=== PATIENT | female | born 2000 | race Caucasian/White ===

== ENCOUNTER 2022-03-04 03:49 | Emergency (ER) | payer BC ==
[2022-03-04] MEDS ORDERED: Ondansetron PF 4 MG/2 ML Vial ONE ×2 (04:23→06:08)
[2022-03-04] MEDS ORDERED: Ketorolac Tromethamine 30 MG/ML VIAL ONE (04:23)
[2022-03-04 04:41] LABS: #Eosinphils 0.2 thou/uL (0.0-0.7); #Lymphocytes 2.8 thou/uL (1.20-3.40); #Monocytes 0.7 thou/uL (0.11-0.59); #Neutrophils 7.5 thou/uL (1.40-6.50); %Basophils 0.3 % (0.0-1.0); %Eosinophils 1.9 % (0.0-10.0); %Lymphocytes 24.7 % (28.0-48.0); %Monocytes 6.4 % (0.0-4.0); %Neutrophils 66.6 % (31.0-61.0); Hemoglobin 12.2 g/dL (12.0-16.0); Mean Corpuscular HGB CONC 32.9 g/dL (32.0-36.0); Mean Corpuscular Hemoglobin 29.1 pg (25.0-35.0); Mean Corpuscular Volume 88.5 fL (78.0-98.0); Mean Platelet Volume 7.3 fL (7.4-10.4); Platelet Count 254 thou/uL (130-400); RBC Distribution Width 11.1 % (11.5-14.5); White Blood Cell (WBC) Count 11.3 thou/uL (4.8-10.8)
[2022-03-04 04:47] LABS: BHCG - Serum Negative (NEGATIVE); Pregs Control Background? CLEAR/WHITE (CLR/WHITE); Pregs Control Bar Appear? YES (CONTROL BAR)
[2022-03-04 04:57] LABS: ALT (SGPT) 24 U/L (8-55); AST (SGOT) 20 U/L (5-34); Alkaline Phosphatase 44 U/L (40-100); Anion Gap 9 mmol/L (10-20); BUN (Urea Nitrogen) 15 mg/dL (7.0-18.7); Bilirubin, Total 0.5 mg/dL (0.2-1.2); Calc. Creatinine Clearance 0 mL/min (70-130); Calcium 9.2 mg/dL (7.8-10.44); Carbon Dioxide 27 mmol/L (22-29); Chloride 105 mmol/L (98-107); Globulin 2.9 g/dL (2.4-3.5); Glucose 91 mg/dL (70-105); Lipase 21 U/L (8-78); Potassium 3.7 mmol/L (3.5-5.1); Protein, Total 6.9 g/dL (6.0-8.3); Sodium 137 mmol/L (136-145)
[2022-03-04 05:52] LABS: Bilirubin Negative (Negative); Blood, Urine Negative (Negative); Clarity Clear (Clear); Glucose, Urine (Dipstick) Normal (Negative); Ketone, Urine Negative (Negative); Leukocyte Negative Leu/uL (Negative); Nitrite Negative (Negative); Protein, Urine (Dipstick) Negative (Neg-Trace); Specific Gravity, Urine 1.022 (1.002-1.036); Urobilinogen Normal mg/dL (Less than 2)
== END 2022-03-04 07:01 | disposition home or self-care (01) ==
LOC: ERS 03:49
DX: R11.2 Nausea with vomiting, unspecified (principal); R10.31 Right lower quadrant pain; R10.814 Left lower quadrant abdominal tenderness; R10.813 Right lower quadrant abdominal tenderness
CPT/HCPCS: 71045; 80053; 81003; 83690; 84703; 85025; 93005; 96374; 96375; 96376; J1885; J2405

== ENCOUNTER 2022-03-31 07:19 | Outpatient (CLI) | payer BC | END 2022-03-31 07:20 | disposition home or self-care (01) | LOC: BICULT 07:19 | PROVIDERS: ATTEND Physician Assistant Medical | DX: R10.11 Right upper quadrant pain (principal); R10.33 Periumbilical pain; K62.5 Hemorrhage of anus and rectum; R19.7 Diarrhea, unspecified; R11.2 Nausea with vomiting, unspecified | CPT/HCPCS: 76700 ==

== ENCOUNTER 2022-05-02 21:00 | Emergency (ER) | payer BC ==
[2022-05-02 21:23] LABS: #Eosinphils 0.1 thou/uL (0.0-0.7); #Lymphocytes 2.4 thou/uL (1.20-3.40); #Monocytes 0.7 thou/uL (0.11-0.59); #Neutrophils 5.4 thou/uL (1.40-6.50); %Basophils 0.2 % (0.0-1.0); %Eosinophils 1.7 % (0.0-10.0); %Lymphocytes 27.3 % (28.0-48.0); %Monocytes 8.3 % (0.0-4.0); %Neutrophils 62.5 % (31.0-61.0); Hemoglobin 12.1 g/dL (12.0-16.0); Mean Corpuscular HGB CONC 33.4 g/dL (32.0-36.0); Mean Corpuscular Hemoglobin 29.9 pg (25.0-35.0); Mean Corpuscular Volume 89.5 fL (78.0-98.0); Mean Platelet Volume 7.6 fL (7.4-10.4); Platelet Count 236 thou/uL (130-400); RBC Distribution Width 11.3 % (11.5-14.5); Red Blood Cell (RBC) Count 4.05 mill/uL (4.00-5.20); White Blood Cell (WBC) Count 8.7 thou/uL (4.8-10.8)
[2022-05-02 21:41] LABS: Bilirubin Negative (Negative); Blood, Urine Negative (Negative); Clarity Turbid (Clear); Glucose, Urine (Dipstick) Normal (Negative); Ketone, Urine 20 mg/dL (Negative); Leukocyte Negative Leu/uL (Negative); Nitrite Negative (Negative); Protein, Urine (Dipstick) 20 mg/dL (Neg-Trace); Specific Gravity, Urine 1.027 (1.002-1.036); Urobilinogen Normal mg/dL (Less than 2)
[2022-05-02 21:44] LABS: ALT (SGPT) 21 U/L (8-55); AST (SGOT) 20 U/L (5-34); Albumin 4.1 g/dL (3.5-5.0); Alkaline Phosphatase 42 U/L (40-100); Anion Gap 11 mmol/L (10-20); BUN (Urea Nitrogen) 15 mg/dL (7.0-18.7); Bilirubin, Total 0.8 mg/dL (0.2-1.2); Calc. Creatinine Clearance 0 mL/min (70-130); Calcium 9.5 mg/dL (7.8-10.44); Carbon Dioxide 25 mmol/L (22-29); Chloride 104 mmol/L (98-107); Estimated GFR 123; Glucose 87 mg/dL (70-105); Potassium 3.9 mmol/L (3.5-5.1); Protein, Total 7.1 g/dL (6.0-8.3); Sodium 136 mmol/L (136-145)
[2022-05-02] MEDS ORDERED: Promethazine HCl 12.5 MG SUPP ONE (22:00)
[2022-05-02] MEDS ORDERED: Promethazine HCl 12.5 MG in Sodium Chloride 0.9% 50 ML IVPB SCH (22:15)
[2022-05-02 22:24] LABS: BHCG - Serum Negative (NEGATIVE); Pregs Control Background? CLEAR/WHITE (CLR/WHITE); Pregs Control Bar Appear? YES (CONTROL BAR)
[2022-05-02] MEDS ORDERED: Morphine 2 MG/ML VIAL ONE (23:25)
== END 2022-05-03 01:48 | disposition home or self-care (01) ==
LOC: ERS 21:00
DX: R10.31 Right lower quadrant pain (principal); R10.13 Epigastric pain; R10.816 Epigastric abdominal tenderness; N83.202 Unspecified ovarian cyst, left side
CPT/HCPCS: 36415; 76856; 80053; 81003; 84703; 85025; 93976; 96361; 96365; 96375; J2270; J2550

== ENCOUNTER 2022-05-10 07:51 | Outpatient (CLI) | payer BC | END 2022-05-10 07:52 | disposition home or self-care (01) | LOC: NM 07:51 | PROVIDERS: ATTEND Physician Assistant Medical | DX: R10.11 Right upper quadrant pain (principal); R11.2 Nausea with vomiting, unspecified; K59.00 Constipation, unspecified | CPT/HCPCS: 78227; A9537 ==

== ENCOUNTER 2022-05-10 23:06 | Emergency (ER) | payer BC ==
[2022-05-11 00:09] LABS: #Lymphocytes 1.2 thou/uL (1.20-3.40); #Monocytes 0.4 thou/uL (0.11-0.59); #Neutrophils 9.4 thou/uL (1.40-6.50); %Basophils 0.4 % (0.0-1.0); %Eosinophils 0.3 % (0.0-10.0); %Lymphocytes 10.8 % (28.0-48.0); %Monocytes 3.7 % (0.0-4.0); %Neutrophils 84.8 % (31.0-61.0); Mean Corpuscular HGB CONC 33.5 g/dL (32.0-36.0); Mean Corpuscular Hemoglobin 29.6 pg (25.0-35.0); Mean Corpuscular Volume 88.5 fL (78.0-98.0); Platelet Count 248 thou/uL (130-400); RBC Distribution Width 11.6 % (11.5-14.5); Red Blood Cell (RBC) Count 4.04 mill/uL (4.00-5.20); White Blood Cell (WBC) Count 11.1 thou/uL (4.8-10.8)
[2022-05-11] MEDS ORDERED: Haloperidol Lactate 5 MG/ML VIAL ONE (00:18)
[2022-05-11 00:21] LABS: ALT (SGPT) 14 U/L (8-55); AST (SGOT) 17 U/L (5-34); Albumin 4.2 g/dL (3.5-5.0); Alkaline Phosphatase 41 U/L (40-100); Anion Gap 18 mmol/L (10-20); BUN (Urea Nitrogen) 12 mg/dL (7.0-18.7); Bilirubin, Total 0.7 mg/dL (0.2-1.2); Calc. Creatinine Clearance 0 mL/min (70-130); Calcium 9.4 mg/dL (7.8-10.44); Carbon Dioxide 17 mmol/L (22-29); Chloride 104 mmol/L (98-107); Estimated GFR 113; Globulin 3.2 g/dL (2.4-3.5); Glucose 87 mg/dL (70-105); Lipase 34 U/L (8-78); Potassium 3.9 mmol/L (3.5-5.1); Protein, Total 7.4 g/dL (6.0-8.3); Sodium 135 mmol/L (136-145)
[2022-05-11 00:30] LABS: BHCG - Serum Negative (NEGATIVE); Pregs Control Background? CLEAR/WHITE (CLR/WHITE); Pregs Control Bar Appear? YES (CONTROL BAR)
[2022-05-11] MEDS ORDERED: Ondansetron PF 4 MG/2 ML Vial ONE (02:10)
[2022-05-11 02:37] LABS: Bilirubin Negative (Negative); Blood, Urine Negative (Negative); Clarity Clear (Clear); Glucose, Urine (Dipstick) Normal (Negative); Ketone, Urine Greater than 150 mg/dL (Negative); Leukocyte Negative Leu/uL (Negative); Nitrite Negative (Negative); Protein, Urine (Dipstick) 20 mg/dL (Neg-Trace); Specific Gravity, Urine 1.028 (1.002-1.036); Urobilinogen Normal mg/dL (Less than 2)
[2022-05-11 02:42] LABS: Amphetamine Not Detected (NotDetected); Barbiturates Screen Not Detected (NotDetected); Benzodiazepine Screen Not Detected (NotDetected); Cocaine Metabolite Screen Not Detected (NotDetected); Methadone Not Detected (NotDetected); Methamphetamine Not Detected (NotDetected); Opiate Screen Not Detected (NotDetected); Oxycodone Screen Not Detected (NotDetected); Phencyclidine (PCP) Not Detected (NotDetected); THC/Cannabinoid Screen Not Detected (NotDetected); Tricyclic Screen Not Detected (NotDetected)
== END 2022-05-11 03:38 | disposition home or self-care (01) ==
LOC: ERS 23:06
DX: R11.2 Nausea with vomiting, unspecified (principal); E28.2 Polycystic ovarian syndrome; Z79.899 Other long term (current) drug therapy; R10.11 Right upper quadrant pain; K59.00 Constipation, unspecified
CPT/HCPCS: 36415; 78227; 80053; 80306; 81003; 83690; 84703; 85025; 93005; 96361; 96374; 96375; A9537; J1630; J2405